=== PATIENT | male | born 1960 | race Caucasian/White ===

== ENCOUNTER 2023-02-27 17:24 | Emergency (ER) | payer MEDICAID, OTHER ==
[~2023-02-27] VITALS: Ht 165.1 cm; Wt 72.6 kg
[2023-02-27 17:48] VITALS: BP 183/97; PULSE 87; RESP 18; TEMP 98.8; O2SAT 98
[2023-02-27 18:35] LABS: BASOPHILS # (AUTO) 0.1 K/uL (0.00-0.22); BASOPHILS % (AUTO) 0.7 % (0.0-2.0); EOSINOPHILS # (AUTO) 0.1 K/uL (0-0.4); EOSINOPHILS % (AUTO) 0.9 % (0.0-4.0); HEMATOCRIT 25.2 % (36-52); HEMOGLOBIN 8.7 g/dL (12.0-18.0); LYMPHOCYTES # (AUTO) 0.6 K/uL (2.0-11.5); LYMPHOCYTES % (AUTO) 5.6 % (20.5-51.1); MEAN CORPUSCULAR HEMOGLOBIN 34 pg (27-31); MEAN CORPUSCULAR HGB CONC 35 g/dL (33-37); MEAN CORPUSCULAR VOLUME 97.5 fL (80-94); MONOCYTES % (AUTO) 9.4 % (1.7-9.3); NEUTROPHILS % (AUTO) 83.4 % (42.2-75.2); PLATELET COUNT (AUTO) 184 K/uL (140-450); RED BLOOD CELL COUNT(AUTO) 2.58 MIL/uL (4.20-6.10); RED CELL DISTRIBUTION WIDTH 13.7 % (11.6-13.7); WHITE BLOOD COUNT (AUTO) 10.8 K/uL (4.8-10.8)
[2023-02-27 18:44] LABS: CALCIUM 8.6 mg/dL (8.5-10.1); CARBON DIOXIDE 24.8 mmol/L (21-32); POTASSIUM 3.8 mmol/L (3.5-5.1)
[2023-02-27 18:57] LABS: CREATININE 6.9 mg/dL (0.6-1.3)
[2023-02-27 20:09] VITALS: BP 171/84; PULSE 86; RESP 18; TEMP 97; O2SAT 98
== END 2023-02-27 20:02 | disposition home or self-care (01) ==
LOC: MED 17:24
DX: N18.6 End stage renal disease (principal); Z99.2 Dependence on renal dialysis; W18.39XA Other fall on same level, initial encounter; Y92.89 Other specified places as the place of occurrence of the external cause; Y93.89 Activity, other specified; Y99.8 Other external cause status
CPT/HCPCS: 36415; 80048; 85025; 93005; 99284

== ENCOUNTER 2023-03-01 17:02 | Inpatient (IN) | payer MEDICAID, OTHER ==
[~2023-03-01] VITALS: Ht 175.3 cm; Wt 63.5 kg
[2023-03-01 17:02] VITALS: BP 95/62; PULSE 172; RESP 18; TEMP 97.4; O2SAT 88
[2023-03-01] MEDS: DILTIAZEM 25 MG/5 ML VIAL IVP ONE ×2 (17:20→18:10)
[2023-03-01] MEDS ORDERED: DILTIAZEM 25 MG/5 ML VIAL IVP ONE (17:21)
[2023-03-01] MEDS: NACL 0.9% 1,000 ML IV ONE (17:25)
[2023-03-01 17:36] LABS: BASOPHILS % (AUTO) 0.8 % (0.0-2.0); HEMATOCRIT 24.9 % (36-52); HEMOGLOBIN 8.7 g/dL (12.0-18.0); LYMPHOCYTES # (AUTO) 0.2 K/uL (2.0-11.5); LYMPHOCYTES % (AUTO) 2.5 % (20.5-51.1); MEAN CORPUSCULAR HEMOGLOBIN 34 pg (27-31); MEAN CORPUSCULAR HGB CONC 35 g/dL (33-37); MEAN CORPUSCULAR VOLUME 96.4 fL (80-94); MONOCYTES # (AUTO) 0.2 K/uL (0.8-1.0); MONOCYTES % (AUTO) 3.7 % (1.7-9.3); NEUTROPHILS # (AUTO) 5.9 K/uL (1.8-7.7); PLATELET COUNT (AUTO) 156 K/uL (140-450); RED BLOOD CELL COUNT(AUTO) 2.59 MIL/uL (4.20-6.10); RED CELL DISTRIBUTION WIDTH 13.6 % (11.6-13.7); WHITE BLOOD COUNT (AUTO) 6.4 K/uL (4.8-10.8)
[2023-03-01 17:46] LABS: ANION GAP 15.5 (8-16); CALCIUM 8.9 mg/dL (8.5-10.1); CARBON DIOXIDE 25.2 mmol/L (21-32); POTASSIUM 3.7 mmol/L (3.5-5.1)
[2023-03-01 17:53] LABS: ALANINE AMINOTRANSFERASE 25 U/L (12-78); ALKALINE PHOSPHATASE 90 U/L (50-136); ASPARTATE AMINOTRANSFERASE 26 U/L (15-37); BILIRUBIN,DIRECT 0.2 mg/dL (0.0-0.3); TOTAL BILIRUBIN 0.5 mg/dL (0.0-1.0); TOTAL PROTEIN, SERUM 7.8 g/dL (6.4-8.2)
[2023-03-01 18:02] LABS: INR 0.98 (0.8-1.2); PARTIAL THROMBOPLASTIN TIME 26.8 secs (22-35.6); PROTHROMBIN TIME 10.3 secs (10.8-13.4)
[2023-03-01] MEDS: DILTIAZEM 125 MG/25 ML VIAL IV ONE (19:59)
[2023-03-01] MEDS: DILTIAZEM 125 MG in DEXTROSE 5% 100 ML IV ONE (19:59)
[2023-03-01] MEDS ORDERED: ONDANSETRON 4 MG/2 ML VIAL IVP PRN (20:35)
[2023-03-01 20:56] LABS: MAGNESIUM 1.6 mg/dL (1.8-2.4); PHOSPHORUS 2.5 mg/dL (2.5-4.9)
[2023-03-02 06:54] LABS: BASOPHILS % (AUTO) 0.7 % (0.0-2.0); HEMATOCRIT 22.5 % (36-52); HEMOGLOBIN 7.8 g/dL (12.0-18.0); LYMPHOCYTES # (AUTO) 0.3 K/uL (2.0-11.5); LYMPHOCYTES % (AUTO) 5.2 % (20.5-51.1); MEAN CORPUSCULAR HEMOGLOBIN 34 pg (27-31); MEAN CORPUSCULAR HGB CONC 34 g/dL (33-37); MEAN CORPUSCULAR VOLUME 97.6 fL (80-94); MONOCYTES # (AUTO) 0.3 K/uL (0.8-1.0); MONOCYTES % (AUTO) 5.4 % (1.7-9.3); NEUTROPHILS # (AUTO) 4.7 K/uL (1.8-7.7); NEUTROPHILS % (AUTO) 88.7 % (42.2-75.2); PLATELET COUNT (AUTO) 144 K/uL (140-450); RED BLOOD CELL COUNT(AUTO) 2.31 MIL/uL (4.20-6.10); RED CELL DISTRIBUTION WIDTH 13.6 % (11.6-13.7); WHITE BLOOD COUNT (AUTO) 5.3 K/uL (4.8-10.8)
[2023-03-02 07:28] LABS: ALBUMIN 2.6 g/dL (3.4-5.0); ANION GAP 15.9 (8-16); CALCIUM 8.2 mg/dL (8.5-10.1); CARBON DIOXIDE 24.7 mmol/L (21-32); POTASSIUM 4.6 mmol/L (3.5-5.1); TOTAL BILIRUBIN 0.4 mg/dL (0.0-1.0); TOTAL PROTEIN, SERUM 6.9 g/dL (6.4-8.2)
[2023-03-02 07:30] LABS: CREATININE 7.9 mg/dL (0.6-1.3)
[2023-03-02] MEDS ORDERED: DILTIAZEM 30 MG TAB ONE ×2 (08:11→09:35)
[2023-03-02] MEDS: AMIODARONE 200 MG TAB PO SCH (08:34)
[2023-03-02] MEDS: DILTIAZEM 120 MG CAPER PO SCH ×2 (09:00→09:58)
[2023-03-02] MEDS: DOCUSATE SODIUM 100 MG GELCAP PO SCH (09:11)
[2023-03-02] MEDS ORDERED: DILTIAZEM 60 MG TAB PO SCH (09:41)
[2023-03-02] MEDS: DILTIAZEM 60 MG TAB PO SCH (09:57)
[2023-03-02] MEDS: PANTOPRAZOLE 40 MG INJ VIAL IVP SCH (11:56)
[2023-03-02] MEDS: APIXABAN 2.5 MG TAB PO SCH (11:56)
[2023-03-02 21:05] VITALS: BP 131/67; PULSE 68; RESP 18; TEMP 98; O2SAT 96
[2023-03-02 21:09] VITALS: PULSE 78
[2023-03-02 21:28] VITALS: O2SAT 95
[2023-03-02] MEDS: MAGNESIUM OXIDE 400 MG TAB PO ONE (22:43)
[2023-03-02 23:55] VITALS: PULSE 64
[2023-03-03] VITALS (12 sets, daily range): BP systolic 130–164; BP diastolic 60–97; PULSE 64–147; RESP 17–20; TEMP 98.1–101.4; O2SAT 94–98
[2023-03-03 07:07] LABS: BASOPHILS % (AUTO) 0.7 % (0.0-2.0); EOSINOPHILS % (AUTO) 0.1 % (0.0-4.0); HEMATOCRIT 21.1 % (36-52); HEMOGLOBIN 7.2 g/dL (12.0-18.0); LYMPHOCYTES # (AUTO) 0.5 K/uL (2.0-11.5); LYMPHOCYTES % (AUTO) 10.4 % (20.5-51.1); MEAN CORPUSCULAR HEMOGLOBIN 34 pg (27-31); MEAN CORPUSCULAR HGB CONC 34 g/dL (33-37); MEAN CORPUSCULAR VOLUME 98.2 fL (80-94); MONOCYTES # (AUTO) 0.3 K/uL (0.8-1.0); MONOCYTES % (AUTO) 7.3 % (1.7-9.3); NEUTROPHILS # (AUTO) 3.8 K/uL (1.8-7.7); NEUTROPHILS % (AUTO) 81.5 % (42.2-75.2); PLATELET COUNT (AUTO) 127 K/uL (140-450); RED BLOOD CELL COUNT(AUTO) 2.14 MIL/uL (4.20-6.10); RED CELL DISTRIBUTION WIDTH 13.5 % (11.6-13.7); WHITE BLOOD COUNT (AUTO) 4.7 K/uL (4.8-10.8)
[2023-03-03 07:22] LABS: ALBUMIN 2.5 g/dL (3.4-5.0); ANION GAP 19.8 (8-16); CALCIUM 7.7 mg/dL (8.5-10.1); CARBON DIOXIDE 21.8 mmol/L (21-32); POTASSIUM 4.6 mmol/L (3.5-5.1); TOTAL BILIRUBIN 0.4 mg/dL (0.0-1.0); TOTAL PROTEIN, SERUM 6.6 g/dL (6.4-8.2)
[2023-03-03 07:27] LABS: CREATININE 9.7 mg/dL (0.6-1.3)
[2023-03-03] MEDS: hydrALAZINE 20 MG/ML VIAL IVP PRN (09:18)
[2023-03-03] MEDS: DILTIAZEM 120 MG CAPER PO SCH (10:45)
[2023-03-03] MEDS: EPOETIN ALFA-EPBX 10,000 UNITS/ML VIAL IV SCH (11:41)
[2023-03-03] MEDS ORDERED: ALBUTEROL 0.083% 2.5 MG/3 ML NEBU INH PRN (17:50)
[2023-03-03] MEDS: WATER STERILE 10 ML VIAL MC ONE (18:50)
[2023-03-03] MEDS: WATER STERILE 10 ML MC ONE (19:35)
[2023-03-03] MEDS: ALTEPLASE 2 MG VIAL MC ONE ×2 (19:35→20:33)
[2023-03-03] MEDS: ACETAMINOPHEN 325 MG TAB PO PRN (19:36)
[2023-03-03] MEDS: METOPROLOL 5 MG/5 ML VIAL ONE (19:42)
[2023-03-03] MEDS: METOPROLOL 5 MG/5 ML VIAL IV ONE (20:33)
[2023-03-04] VITALS (12 sets, daily range): BP systolic 96–130; BP diastolic 55–73; PULSE 68–78; RESP 17–20; TEMP 97–100.2; O2SAT 93–100
[2023-03-04 07:04] LABS: BASOPHILS % (AUTO) 0.1 % (0.0-2.0); HEMATOCRIT 20.7 % (36-52); HEMOGLOBIN 7.3 g/dL (12.0-18.0); LYMPHOCYTES # (AUTO) 0.2 K/uL (2.0-11.5); LYMPHOCYTES % (AUTO) 2.4 % (20.5-51.1); MEAN CORPUSCULAR HEMOGLOBIN 34 pg (27-31); MEAN CORPUSCULAR HGB CONC 35 g/dL (33-37); MEAN CORPUSCULAR VOLUME 96.7 fL (80-94); MONOCYTES # (AUTO) 0.5 K/uL (0.8-1.0); MONOCYTES % (AUTO) 5.2 % (1.7-9.3); NEUTROPHILS # (AUTO) 9.4 K/uL (1.8-7.7); NEUTROPHILS % (AUTO) 92.3 % (42.2-75.2); PLATELET COUNT (AUTO) 93 K/uL (140-450); RED BLOOD CELL COUNT(AUTO) 2.14 MIL/uL (4.20-6.10); RED CELL DISTRIBUTION WIDTH 13.4 % (11.6-13.7); WHITE BLOOD COUNT (AUTO) 10.2 K/uL (4.8-10.8)
[2023-03-04 07:24] LABS: ALBUMIN 2.4 g/dL (3.4-5.0); ANION GAP 17.9 (8-16); CALCIUM 8.4 mg/dL (8.5-10.1); CARBON DIOXIDE 24.2 mmol/L (21-32); POTASSIUM 4.1 mmol/L (3.5-5.1); TOTAL BILIRUBIN 0.5 mg/dL (0.0-1.0); TOTAL PROTEIN, SERUM 6.6 g/dL (6.4-8.2)
[2023-03-04] MEDS: PIPERACILLIN/TAZOBACTAM 2.25 GM in DEXTROSE 5% 50 ML IV SCH (12:26)
[2023-03-04 13:43] LABS: AMPHETAMINE, URINE NEGATIVE ng/ml (NEG <=1000); BARBITURATE, URINE NEGATIVE ng/ml (NEG <=200); BENZODIAZEPINE, URINE NEGATIVE ng/mL (NEG <=200); CANNABINOID, URINE NEGATIVE ng/mL (NEG <=50); COCAINE, URINE NEGATIVE ng/mL (NEG <=300); OPIATE, URINE NEGATIVE ng/mL (NEG <=2000); PHENCYCLIDINE SCREEN,URINE NEGATIVE ng/mL (NEG <=25)
[2023-03-04] MEDS: LORazepam 1 MG TAB PO PRN (17:22)
[2023-03-04] MEDS: DILTIAZEM 120 MG CAPER PO SCH (20:08)
[2023-03-05] VITALS (12 sets, daily range): BP systolic 99–158; BP diastolic 60–84; PULSE 65–91; RESP 18–20; TEMP 96.7–98.9; O2SAT 93–96
[2023-03-05 06:13] LABS: BASOPHILS % (AUTO) 0.3 % (0.0-2.0); EOSINOPHILS % (AUTO) 0.5 % (0.0-4.0); HEMATOCRIT 20.4 % (36-52); HEMOGLOBIN 7.1 g/dL (12.0-18.0); LYMPHOCYTES # (AUTO) 0.4 K/uL (2.0-11.5); MEAN CORPUSCULAR HEMOGLOBIN 34 pg (27-31); MEAN CORPUSCULAR HGB CONC 35 g/dL (33-37); MEAN CORPUSCULAR VOLUME 96.8 fL (80-94); MONOCYTES # (AUTO) 0.5 K/uL (0.8-1.0); MONOCYTES % (AUTO) 8.9 % (1.7-9.3); NEUTROPHILS % (AUTO) 83.3 % (42.2-75.2); PLATELET COUNT (AUTO) 81 K/uL (140-450); RED BLOOD CELL COUNT(AUTO) 2.11 MIL/uL (4.20-6.10); RED CELL DISTRIBUTION WIDTH 13.5 % (11.6-13.7)
[2023-03-05 06:16] LABS: ALBUMIN 2.4 g/dL (3.4-5.0); CALCIUM 7.8 mg/dL (8.5-10.1); CARBON DIOXIDE 22.2 mmol/L (21-32); POTASSIUM 4.2 mmol/L (3.5-5.1); TOTAL BILIRUBIN 0.5 mg/dL (0.0-1.0); TOTAL PROTEIN, SERUM 6.4 g/dL (6.4-8.2)
[2023-03-05 06:33] LABS: CREATININE 9.8 mg/dL (0.6-1.3)
[2023-03-05 16:51] LABS: FLU A ANTIGEN negative (NEGATIVE); FLU B ANTIGEN NEGATIVE (NEGATIVE)
[2023-03-05] MEDS: ALBUTEROL 0.083% 2.5 MG/3 ML NEBU INH ONE (19:28)
[2023-03-06] VITALS (7 sets, daily range): BP systolic 99–153; BP diastolic 58–99; PULSE 65–96; RESP 16–20; TEMP 97.3–100.1; O2SAT 94–96
[2023-03-06 07:08] LABS: BASOPHILS % (AUTO) 0.5 % (0.0-2.0); EOSINOPHILS % (AUTO) 0.5 % (0.0-4.0); LYMPHOCYTES # (AUTO) 0.6 K/uL (2.0-11.5); LYMPHOCYTES % (AUTO) 10.7 % (20.5-51.1); MEAN CORPUSCULAR HEMOGLOBIN 34 pg (27-31); MEAN CORPUSCULAR HGB CONC 35 g/dL (33-37); MONOCYTES # (AUTO) 0.5 K/uL (0.8-1.0); MONOCYTES % (AUTO) 10.1 % (1.7-9.3); NEUTROPHILS # (AUTO) 4.1 K/uL (1.8-7.7); NEUTROPHILS % (AUTO) 78.2 % (42.2-75.2); PLATELET COUNT (AUTO) 73 K/uL (140-450); RED BLOOD CELL COUNT(AUTO) 2.04 MIL/uL (4.20-6.10); RED CELL DISTRIBUTION WIDTH 13.4 % (11.6-13.7); WHITE BLOOD COUNT (AUTO) 5.2 K/uL (4.8-10.8)
[2023-03-06 07:10] LABS: ALBUMIN 2.3 g/dL (3.4-5.0); ANION GAP 22.9 (8-16); CALCIUM 7.7 mg/dL (8.5-10.1); CARBON DIOXIDE 20.8 mmol/L (21-32); POTASSIUM 4.7 mmol/L (3.5-5.1); TOTAL BILIRUBIN 0.5 mg/dL (0.0-1.0); TOTAL PROTEIN, SERUM 6.4 g/dL (6.4-8.2)
[2023-03-06 07:58] LABS: CREATININE 12.2 mg/dL (0.6-1.3); HEMATOCRIT 19.8 % (36-52); HEMOGLOBIN 6.8 g/dL (12.0-18.0)
[2023-03-06 19:23] LABS: BASOPHILS % (AUTO) 0.4 % (0.0-2.0); EOSINOPHILS % (AUTO) 0.5 % (0.0-4.0); HEMOGLOBIN 8.5 g/dL (12.0-18.0); LYMPHOCYTES # (AUTO) 0.2 K/uL (2.0-11.5); LYMPHOCYTES % (AUTO) 1.5 % (20.5-51.1); MEAN CORPUSCULAR HEMOGLOBIN 34 pg (27-31); MEAN CORPUSCULAR HGB CONC 36 g/dL (33-37); MEAN CORPUSCULAR VOLUME 94.9 fL (80-94); MONOCYTES # (AUTO) 0.4 K/uL (0.8-1.0); MONOCYTES % (AUTO) 4.4 % (1.7-9.3); NEUTROPHILS # (AUTO) 9.1 K/uL (1.8-7.7); NEUTROPHILS % (AUTO) 93.2 % (42.2-75.2); PLATELET COUNT (AUTO) 59 K/uL (140-450); RED BLOOD CELL COUNT(AUTO) 2.53 MIL/uL (4.20-6.10); RED CELL DISTRIBUTION WIDTH 14.2 % (11.6-13.7); WHITE BLOOD COUNT (AUTO) 9.7 K/uL (4.8-10.8)
[2023-03-06] MEDS ORDERED: MEROPENEM 500 MG in NACL 0.9% 50 ML IV SCH (21:00)
[2023-03-06] MEDS: MEROPENEM 500 MG VIAL IV ONE (21:52)
[2023-03-06] MEDS: MEROPENEM 500 MG in NACL 0.9% 50 ML IV SCH (21:53)
[2023-03-07 07:16] LABS: EOSINOPHILS % (AUTO) 0.1 % (0.0-4.0); HEMATOCRIT 24.3 % (36-52); HEMOGLOBIN 8.4 g/dL (12.0-18.0); LYMPHOCYTES # (AUTO) 0.6 K/uL (2.0-11.5); LYMPHOCYTES % (AUTO) 3.6 % (20.5-51.1); MEAN CORPUSCULAR HEMOGLOBIN 33 pg (27-31); MEAN CORPUSCULAR HGB CONC 35 g/dL (33-37); MEAN CORPUSCULAR VOLUME 96.1 fL (80-94); MONOCYTES # (AUTO) 1.1 K/uL (0.8-1.0); MONOCYTES % (AUTO) 6.1 % (1.7-9.3); NEUTROPHILS # (AUTO) 15.8 K/uL (1.8-7.7); NEUTROPHILS % (AUTO) 90.2 % (42.2-75.2); PLATELET COUNT (AUTO) 52 K/uL (140-450); RED BLOOD CELL COUNT(AUTO) 2.53 MIL/uL (4.20-6.10); RED CELL DISTRIBUTION WIDTH 14.4 % (11.6-13.7); WHITE BLOOD COUNT (AUTO) 17.6 K/uL (4.8-10.8)
[2023-03-07 07:21] LABS: ALBUMIN 2.4 g/dL (3.4-5.0); ANION GAP 21.7 (8-16); CALCIUM 7.8 mg/dL (8.5-10.1); CARBON DIOXIDE 21.8 mmol/L (21-32); POTASSIUM 4.5 mmol/L (3.5-5.1); TOTAL BILIRUBIN 0.7 mg/dL (0.0-1.0)
[2023-03-07 07:40] LABS: CREATININE 10.6 mg/dL (0.6-1.3)
[2023-03-07 08:00] VITALS: BP 138/90; PULSE 67; RESP 18; TEMP 98; O2SAT 96
[2023-03-07 08:13] VITALS: PULSE 78; RESP 20; O2SAT 99
[2023-03-07 08:23] VITALS: PULSE 83; RESP 20; O2SAT 96
[2023-03-07 16:00] VITALS: BP 127/73; PULSE 68; RESP 17; TEMP 98.2; O2SAT 96
[2023-03-07 20:00] VITALS: PULSE 110; RESP 20; TEMP 98; O2SAT 94
[2023-03-07] MEDS: MEROPENEM 500 MG in NACL 0.9% 50 ML IV SCH (20:08)
[2023-03-07] MEDS: ZOLPIDEM 5 MG TAB PO PRN (23:45)
[2023-03-08] VITALS: BP 91/58; PULSE 72; RESP 17; TEMP 97.8; O2SAT 96
[2023-03-08 04:00] VITALS: BP 94/73; PULSE 66; RESP 20; TEMP 97.6; O2SAT 94
[2023-03-08 07:30] LABS: ANION GAP 14.3 (8-16); CALCIUM 7.7 mg/dL (8.5-10.1); CARBON DIOXIDE 30.2 mmol/L (21-32); POTASSIUM 3.5 mmol/L (3.5-5.1)
[2023-03-08 07:35] LABS: CREATININE 6.7 mg/dL (0.6-1.3)
[2023-03-08 08:00] VITALS: BP 93/69; PULSE 64; PULSE 65; RESP 18; RESP 20; TEMP 97.4; O2SAT 93; O2SAT 95
[2023-03-08 11:55] LABS: BASOPHILS % (AUTO) 0.4 % (0.0-2.0); EOSINOPHILS # (AUTO) 0.1 K/uL (0-0.4); EOSINOPHILS % (AUTO) 0.8 % (0.0-4.0); HEMATOCRIT 24.7 % (36-52); HEMOGLOBIN 8.6 g/dL (12.0-18.0); LYMPHOCYTES # (AUTO) 0.9 K/uL (2.0-11.5); LYMPHOCYTES % (AUTO) 8.7 % (20.5-51.1); MEAN CORPUSCULAR HEMOGLOBIN 34 pg (27-31); MEAN CORPUSCULAR HGB CONC 35 g/dL (33-37); MEAN CORPUSCULAR VOLUME 96.3 fL (80-94); MONOCYTES # (AUTO) 1.2 K/uL (0.8-1.0); MONOCYTES % (AUTO) 11.7 % (1.7-9.3); NEUTROPHILS % (AUTO) 78.4 % (42.2-75.2); PLATELET COUNT (AUTO) 51 K/uL (140-450); RED BLOOD CELL COUNT(AUTO) 2.57 MIL/uL (4.20-6.10); RED CELL DISTRIBUTION WIDTH 14.2 % (11.6-13.7); WHITE BLOOD COUNT (AUTO) 10.3 K/uL (4.8-10.8)
[2023-03-08 12:00] VITALS: BP 121/92; PULSE 70; RESP 18; TEMP 98.4; O2SAT 99
[2023-03-08 12:10] LABS: ALBUMIN 2.2 g/dL (3.4-5.0); CALCIUM 7.6 mg/dL (8.5-10.1); CARBON DIOXIDE 27.6 mmol/L (21-32); POTASSIUM 3.6 mmol/L (3.5-5.1); TOTAL BILIRUBIN 0.5 mg/dL (0.0-1.0); TOTAL PROTEIN, SERUM 6.4 g/dL (6.4-8.2)
[2023-03-08 12:16] LABS: CREATININE 6.7 mg/dL (0.6-1.3)
[2023-03-08 20:00] VITALS: BP 99/62; PULSE 106; PULSE 75; RESP 16; RESP 18; TEMP 98.1; TEMP 98.7; O2SAT 92
[2023-03-08 20:26] VITALS: O2SAT 97
[2023-03-09 07:15] LABS: BASOPHILS # (AUTO) 0.1 K/uL (0.00-0.22); BASOPHILS % (AUTO) 0.5 % (0.0-2.0); EOSINOPHILS # (AUTO) 0.1 K/uL (0-0.4); EOSINOPHILS % (AUTO) 1.4 % (0.0-4.0); HEMATOCRIT 26.1 % (36-52); LYMPHOCYTES % (AUTO) 10.6 % (20.5-51.1); MEAN CORPUSCULAR HEMOGLOBIN 33 pg (27-31); MEAN CORPUSCULAR HGB CONC 35 g/dL (33-37); MEAN CORPUSCULAR VOLUME 96.3 fL (80-94); MONOCYTES # (AUTO) 1.6 K/uL (0.8-1.0); MONOCYTES % (AUTO) 16.6 % (1.7-9.3); NEUTROPHILS # (AUTO) 6.8 K/uL (1.8-7.7); NEUTROPHILS % (AUTO) 70.9 % (42.2-75.2); PLATELET COUNT (AUTO) 67 K/uL (140-450); RED BLOOD CELL COUNT(AUTO) 2.71 MIL/uL (4.20-6.10); RED CELL DISTRIBUTION WIDTH 14.3 % (11.6-13.7); WHITE BLOOD COUNT (AUTO) 9.6 K/uL (4.8-10.8)
[2023-03-09 07:31] LABS: ALBUMIN 2.4 g/dL (3.4-5.0); ANION GAP 13.4 (8-16); CALCIUM 7.9 mg/dL (8.5-10.1); CARBON DIOXIDE 29.9 mmol/L (21-32); POTASSIUM 4.3 mmol/L (3.5-5.1); TOTAL BILIRUBIN 0.5 mg/dL (0.0-1.0); TOTAL PROTEIN, SERUM 6.8 g/dL (6.4-8.2)
[2023-03-09 07:34] LABS: CREATININE 6.3 mg/dL (0.6-1.3)
[2023-03-09 08:32] VITALS: PULSE 98
[2023-03-09 08:33] VITALS: TEMP 97.8
[2023-03-09 08:35] VITALS: PULSE 98; RESP 20
[2023-03-09 16:00] VITALS: BP 173/66; PULSE 63; RESP 18; TEMP 97.4; O2SAT 97
[2023-03-09 19:35] VITALS: O2SAT 95
[2023-03-09 20:00] VITALS: BP 122/70; PULSE 63; PULSE 73; RESP 16; TEMP 98.8; O2SAT 95; O2SAT 97
[2023-03-09] MEDS ORDERED: MELATONIN 3 MG TAB PO PRN (23:35)
[2023-03-10] VITALS (7 sets, daily range): BP systolic 112–168; BP diastolic 67–92; PULSE 65–103; RESP 16–20; TEMP 97.9–100.5; O2SAT 93–99
[2023-03-10 07:48] LABS: BASOPHILS % (AUTO) 0.5 % (0.0-2.0); EOSINOPHILS # (AUTO) 0.2 K/uL (0-0.4); EOSINOPHILS % (AUTO) 2.1 % (0.0-4.0); HEMATOCRIT 23.9 % (36-52); LYMPHOCYTES # (AUTO) 0.8 K/uL (2.0-11.5); LYMPHOCYTES % (AUTO) 10.8 % (20.5-51.1); MEAN CORPUSCULAR HEMOGLOBIN 33 pg (27-31); MEAN CORPUSCULAR HGB CONC 34 g/dL (33-37); MONOCYTES # (AUTO) 1.2 K/uL (0.8-1.0); NEUTROPHILS # (AUTO) 5.5 K/uL (1.8-7.7); NEUTROPHILS % (AUTO) 71.6 % (42.2-75.2); PLATELET COUNT (AUTO) 105 K/uL (140-450); RED BLOOD CELL COUNT(AUTO) 2.44 MIL/uL (4.20-6.10); RED CELL DISTRIBUTION WIDTH 14.2 % (11.6-13.7); WHITE BLOOD COUNT (AUTO) 7.7 K/uL (4.8-10.8)
[2023-03-10 08:31] LABS: ALBUMIN 2.4 g/dL (3.4-5.0); ANION GAP 18.3 (8-16); CALCIUM 7.5 mg/dL (8.5-10.1); CARBON DIOXIDE 26.5 mmol/L (21-32); POTASSIUM 4.8 mmol/L (3.5-5.1); TOTAL BILIRUBIN 0.5 mg/dL (0.0-1.0); TOTAL PROTEIN, SERUM 6.6 g/dL (6.4-8.2)
[2023-03-10 08:33] LABS: CREATININE 8.5 mg/dL (0.6-1.3)
[2023-03-10] MEDS: LIDOCAINE MPF 1% 10 MG/ML VIAL INJ ONE (20:35)
[2023-03-10] MEDS: MORPHINE SULFATE 4 MG/ML SYR IVP ONE (20:35)
[2023-03-11] VITALS (8 sets, daily range): BP systolic 96–141; BP diastolic 64–80; PULSE 62–72; RESP 18; TEMP 96.8–98.9; O2SAT 93–99
[2023-03-11 07:26] LABS: BASOPHILS % (AUTO) 0.5 % (0.0-2.0); EOSINOPHILS # (AUTO) 0.2 K/uL (0-0.4); EOSINOPHILS % (AUTO) 2.3 % (0.0-4.0); HEMATOCRIT 23.3 % (36-52); LYMPHOCYTES # (AUTO) 0.7 K/uL (2.0-11.5); LYMPHOCYTES % (AUTO) 8.9 % (20.5-51.1); MEAN CORPUSCULAR HEMOGLOBIN 33 pg (27-31); MEAN CORPUSCULAR HGB CONC 34 g/dL (33-37); MEAN CORPUSCULAR VOLUME 97.5 fL (80-94); MONOCYTES # (AUTO) 1.1 K/uL (0.8-1.0); MONOCYTES % (AUTO) 13.5 % (1.7-9.3); NEUTROPHILS % (AUTO) 74.8 % (42.2-75.2); PLATELET COUNT (AUTO) 139 K/uL (140-450); RED CELL DISTRIBUTION WIDTH 14.2 % (11.6-13.7)
[2023-03-11 08:03] LABS: ALBUMIN 2.5 g/dL (3.4-5.0); ANION GAP 15.5 (8-16); CALCIUM 7.9 mg/dL (8.5-10.1); CARBON DIOXIDE 26.7 mmol/L (21-32); POTASSIUM 4.2 mmol/L (3.5-5.1); TOTAL BILIRUBIN 0.5 mg/dL (0.0-1.0); TOTAL PROTEIN, SERUM 6.1 g/dL (6.4-8.2)
[2023-03-11 08:05] LABS: CREATININE 6.2 mg/dL (0.6-1.3)
[2023-03-12] VITALS (8 sets, daily range): BP systolic 136–145; BP diastolic 73–80; PULSE 67–72; RESP 18–19; TEMP 97.2–98.4; O2SAT 93–97
[2023-03-12] MEDS: MORPHINE SULFATE 2 MG/ML SYR ONE (21:17)
[2023-03-12] MEDS: LIDOCAINE MPF 1% 5 ML ONE (21:32)
[2023-03-13] VITALS: BP 141/83; PULSE 68; RESP 18; TEMP 98.3; O2SAT 96
[2023-03-13 07:36] VITALS: PULSE 78; RESP 20; O2SAT 99
[2023-03-13 07:37] VITALS: PULSE 69
[2023-03-13 07:38] VITALS: TEMP 97.2
[2023-03-13 08:00] VITALS: BP 140/80; PULSE 73; RESP 20; TEMP 98.4; O2SAT 93
[2023-03-13 20:00] VITALS: BP 151/97; PULSE 84; PULSE 87; RESP 18; TEMP 98; O2SAT 93
[2023-03-14] MEDS: fentaNYL citrate 0.05 MG/ML VIAL ONE ×2 (07:42→08:51)
[2023-03-14] MEDS: BUPIVACAINE-MPF 0.5% 10 ML VIAL INJ ONE (07:43)
[2023-03-14] MEDS: ceFAZolin 2,000 MG VIAL ONE (07:43)
[2023-03-14] MEDS: LIDOCAINE/EPI 1% 1:100000 20 ML VIAL INJ ONE (07:43)
[2023-03-14] MEDS: MIDAZOLAM 2 MG/2 ML VIAL ONE (07:43)
[2023-03-14 08:00] VITALS: PULSE 74; TEMP 97.6
[2023-03-14] MEDS ORDERED: MEPERIDINE 25 MG/ML SYR IVP PRN (08:50)
[2023-03-14] MEDS: ONDANSETRON 4 MG/2 ML VIAL ONE (08:50)
[2023-03-14] MEDS ORDERED: diphenhydrAMINE 50 MG/ML VIAL IVP PRN (08:50)
[2023-03-14] MEDS ORDERED: ONDANSETRON 4 MG/2 ML VIAL IVP PRN (08:50)
[2023-03-14] MEDS ORDERED: HYDROmorphone 1 MG/ML AMP IVP PRN (08:50)
[2023-03-14] MEDS: DEXAMETHASONE 4 MG/ML VIAL ONE (08:51)
[2023-03-14 09:30] VITALS: BP 155/86; PULSE 74; RESP 18; TEMP 97.6; O2SAT 91
[2023-03-14] MEDS: NACL 0.9% 1,000 ML IV SCH (10:09)
[2023-03-14] MEDS ORDERED: ROC1PM IV (11:17)
[2023-03-14] MEDS ORDERED: LORA-476 PO (11:17)
[2023-03-14] MEDS ORDERED: DILT120C95 PO (11:17)
[2023-03-14] MEDS ORDERED: [UNRECOGNIZED DRUG - CODE] IV (11:17)
[2023-03-14 15:08] VITALS: PULSE 74; RESP 21; O2SAT 93
== END 2023-03-14 16:45 | DRG 721 ==
LOC: MED 17:02 → MTU 21:48
PROVIDERS: ADMIT Student in an Organized Health Care Education/Training Program; ATTEND Student in an Organized Health Care Education/Training Program
PROC: 30233N1 Transfusion of Nonautologous Red Blood Cells into Peripheral Vein, Percutaneous Approach (ICD-10-PCS; 2023-03-06)
PROC: 5A1D70Z Performance of Urinary Filtration, Intermittent, Less than 6 Hours Per Day (ICD-10-PCS; 2023-03-06)
PROC: 5A1D70Z Performance of Urinary Filtration, Intermittent, Less than 6 Hours Per Day (ICD-10-PCS; 2023-03-07)
PROC: 5A1D70Z Performance of Urinary Filtration, Intermittent, Less than 6 Hours Per Day (ICD-10-PCS; 2023-03-08)
PROC: 5A1D70Z Performance of Urinary Filtration, Intermittent, Less than 6 Hours Per Day (ICD-10-PCS; 2023-03-10)
PROC: 06PY33Z Removal of Infusion Device from Lower Vein, Percutaneous Approach (ICD-10-PCS; 2023-03-12)
PROC: 5A1D70Z Performance of Urinary Filtration, Intermittent, Less than 6 Hours Per Day (ICD-10-PCS; 2023-03-13)
PROC: 05HM33Z Insertion of Infusion Device into Right Internal Jugular Vein, Percutaneous Approach (ICD-10-PCS; 2023-03-14)
PROC: B543ZZA Ultrasonography of Right Jugular Veins, Guidance (ICD-10-PCS; 2023-03-14)
PROC: 5A1D70Z Performance of Urinary Filtration, Intermittent, Less than 6 Hours Per Day (ICD-10-PCS; 2023-03-14)
PROC: 0JH63XZ Insertion of Tunneled Vascular Access Device into Chest Subcutaneous Tissue and Fascia, Percutaneous Approach (ICD-10-PCS; principal; 2023-03-14 07:30)
DX: T80.211A Bloodstream infection due to central venous catheter, initial encounter (principal); A41.9 Sepsis, unspecified organism; I12.0 Hypertensive chronic kidney disease with stage 5 chronic kidney disease or end stage renal disease; E44.0 Moderate protein-calorie malnutrition; I48.20 Chronic atrial fibrillation, unspecified; D63.1 Anemia in chronic kidney disease; N18.6 End stage renal disease; E87.70 Fluid overload, unspecified; Z20.822 Contact with and (suspected) exposure to COVID-19; R91.1 Solitary pulmonary nodule; B96.4 Proteus (mirabilis) (morganii) as the cause of diseases classified elsewhere; Y84.8 Other medical procedures as the cause of abnormal reaction of the patient, or of later complication, without mention of misadventure at the time of the procedure; Z99.2 Dependence on renal dialysis; Z79.899 Other long term (current) drug therapy; Z79.01 Long term (current) use of anticoagulants; Z87.891 Personal history of nicotine dependence; Z68.20 Body mass index [BMI] 20.0-20.9, adult
CPT/HCPCS: 36415; 71045; 71250; 80048; 80053; 80076; 80305; 82728; 83036; 83540; 83735; 83880; 84100; 84484; 85025; 85379; 85610; 85730; 86886; 86900; 86901; 86920; 87040; 87081; 93005; 93970; 96361; 96374; 97116; 97163-GP; 97530; 99291; C1713; C1894; C9113; J0360; J0696; J1100; J1644; J2001; J2185; J2250; J2270; J2405; J2543; J2997; J3010; J3490; J7030; J7060; J7613; P9016; Q0092; Q5106

== ENCOUNTER 2023-05-24 15:13 | Inpatient (IN) | payer OTHER, MEDICAID ==
[~2023-05-24] VITALS: Ht 170.2 cm; Wt 70.3 kg
[~2023-05-24 15:13] MED LIST: DILT120C95 PO; LORA-476 PO; ROC1PM IV; [UNRECOGNIZED DRUG - CODE] IV
[2023-05-24 15:26] VITALS: BP 187/138; PULSE 155; RESP 17; TEMP 97.6; O2SAT 97
[2023-05-24] MEDS: DILTIAZEM 25 MG/5 ML VIAL IVP ONE (15:41)
[2023-05-24 15:46] LABS: BASOPHILS # (AUTO) 0.1 K/uL (0.00-0.22); BASOPHILS % (AUTO) 1.2 % (0.0-2.0); EOSINOPHILS # (AUTO) 0.1 K/uL (0-0.4); EOSINOPHILS % (AUTO) 0.8 % (0.0-4.0); HEMATOCRIT 26.8 % (36-52); HEMOGLOBIN 9.3 g/dL (12.0-18.0); LYMPHOCYTES # (AUTO) 0.6 K/uL (2.0-11.5); LYMPHOCYTES % (AUTO) 5.9 % (20.5-51.1); MEAN CORPUSCULAR HEMOGLOBIN 32 pg (27-31); MEAN CORPUSCULAR HGB CONC 35 g/dL (33-37); MEAN CORPUSCULAR VOLUME 91.7 fL (80-94); MONOCYTES % (AUTO) 9.5 % (1.7-9.3); NEUTROPHILS # (AUTO) 8.9 K/uL (1.8-7.7); NEUTROPHILS % (AUTO) 82.6 % (42.2-75.2); PLATELET COUNT (AUTO) 193 K/uL (140-450); RED BLOOD CELL COUNT(AUTO) 2.92 MIL/uL (4.20-6.10); RED CELL DISTRIBUTION WIDTH 15.5 % (11.6-13.7); WHITE BLOOD COUNT (AUTO) 10.8 K/uL (4.8-10.8)
[2023-05-24 16:13] LABS: ANION GAP 16.6 (8-16); CALCIUM 9.1 mg/dL (8.5-10.1); CARBON DIOXIDE 26.1 mmol/L (21-32); POTASSIUM 3.7 mmol/L (3.5-5.1)
[2023-05-24 16:15] LABS: CREATININE 6.3 mg/dL (0.6-1.3)
[2023-05-24 16:16] LABS: INR 0.93 (0.8-1.2); PARTIAL THROMBOPLASTIN TIME 27.2 secs (22-35.6); PROTHROMBIN TIME 9.8 secs (10.8-13.4)
[2023-05-24] MEDS: DILTIAZEM 30 MG TAB PO ONE (16:24)
[2023-05-24 16:29] LABS: MAGNESIUM 2.1 mg/dL (1.8-2.4); PHOSPHORUS 4.3 mg/dL (2.5-4.9); THYROID STIMULATING HORMONE 0.92 uIU/mL (0.34-3.74)
[2023-05-24] MEDS: CLONIDINE HYDROCHLORIDE 0.1 MG TAB PO ONE ×2 (16:58→17:44)
[2023-05-24] MEDS: ASPIRIN 81 MG TAB.CHEW PO ONE (16:58)
[2023-05-24] MEDS ORDERED: HYDR-5856 PO (18:09)
[2023-05-24] MEDS ORDERED: DONE10TA37 PO (18:09)
[2023-05-24] MEDS ORDERED: KAY15 PO (18:09)
[2023-05-24] MEDS ORDERED: CARV12.52 PO (18:09)
[2023-05-24] MEDS ORDERED: ALBU117P INH (18:09)
[2023-05-24] MEDS ORDERED: LACT10SO8 PO (18:09)
[2023-05-24] MEDS ORDERED: MIRT-33 PO (18:09)
[2023-05-24] MEDS ORDERED: QUET25TA46 PO (18:09)
[2023-05-24] MEDS ORDERED: SEVE800T25 PO (18:09)
[2023-05-24] MEDS ORDERED: [UNRECOGNIZED DRUG - CODE] PO (18:09)
[2023-05-24] MEDS ORDERED: HYDROcodone/APAP 5/325 MG 1 TAB TAB PO PRN (18:50)
[2023-05-24] MEDS ORDERED: MORPHINE SULFATE 2 MG/ML SYR IVP PRN (18:50)
[2023-05-24] MEDS ORDERED: ONDANSETRON 4 MG/2 ML VIAL IVP PRN (18:50)
[2023-05-24] MEDS ORDERED: ACETAMINOPHEN 325 MG TAB PO PRN (18:50)
[2023-05-24] MEDS ORDERED: ALBUTEROL 0.083% 2.5 MG/3 ML NEBU INH PRN (18:50)
[2023-05-24] MEDS ORDERED: DEXTROSE 50% 50 ML SYR IVP PRN (19:00)
[2023-05-24] MEDS ORDERED: INSULIN LISPRO SLIDING SCALE 100 UNITS/ML VIAL SUBQ PRN (19:00)
[2023-05-24] MEDS ORDERED: LORazepam 1 MG TAB PO PRN (19:05)
[2023-05-24 20:42] VITALS: PULSE 65; RESP 21; O2SAT 96
[2023-05-24 20:46] VITALS: PULSE 82
[2023-05-24] MEDS ORDERED: DILTIAZEM HCL PO SCH (21:00)
[2023-05-24] MEDS: BLOOD GLUCOSE MONITORING 1 DEV DEV FS SCH (23:00)
[2023-05-24] MEDS: DILTIAZEM 120 MG CAPER PO SCH (23:29)
[2023-05-24] MEDS: carvediloL 12.5 MG TAB PO SCH (23:31)
[2023-05-24] MEDS: QUEtiapine FUMARATE 25 MG TAB PO SCH (23:32)
[2023-05-25] VITALS (11 sets, daily range): BP systolic 162–231; BP diastolic 93–115; PULSE 63–94; RESP 16–21; TEMP 97.4–99; O2SAT 96–98
[2023-05-25] MEDS: hydrALAZINE 20 MG/ML VIAL IVP PRN ×2 (05:49→05:50)
[2023-05-25] MEDS ORDERED: SODIUM POLYSTYRENE 15 GM/60 ML UDBTL PO SCH ×2 (09:00)
[2023-05-25] MEDS: DONEPEZIL 10 MG TAB PO SCH (09:22)
[2023-05-25] MEDS: hydrALAZINE 25 MG TAB PO SCH (09:23)
[2023-05-25] MEDS: carvediloL 6.25 MG TAB PO SCH (09:24)
[2023-05-26] VITALS (7 sets, daily range): BP systolic 138–169; BP diastolic 71–96; PULSE 63–98; RESP 17–18; TEMP 96.8–99; O2SAT 95–99
[2023-05-26 07:27] LABS: BASOPHILS # (AUTO) 0.1 K/uL (0.00-0.22); BASOPHILS % (AUTO) 1.2 % (0.0-2.0); EOSINOPHILS # (AUTO) 0.1 K/uL (0-0.4); EOSINOPHILS % (AUTO) 2.6 % (0.0-4.0); HEMATOCRIT 26.1 % (36-52); LYMPHOCYTES # (AUTO) 0.6 K/uL (2.0-11.5); LYMPHOCYTES % (AUTO) 11.3 % (20.5-51.1); MEAN CORPUSCULAR HEMOGLOBIN 32 pg (27-31); MEAN CORPUSCULAR HGB CONC 35 g/dL (33-37); MEAN CORPUSCULAR VOLUME 91.6 fL (80-94); MONOCYTES # (AUTO) 0.6 K/uL (0.8-1.0); MONOCYTES % (AUTO) 11.7 % (1.7-9.3); NEUTROPHILS # (AUTO) 3.8 K/uL (1.8-7.7); NEUTROPHILS % (AUTO) 73.2 % (42.2-75.2); PLATELET COUNT (AUTO) 179 K/uL (140-450); RED BLOOD CELL COUNT(AUTO) 2.85 MIL/uL (4.20-6.10); RED CELL DISTRIBUTION WIDTH 15.7 % (11.6-13.7); WHITE BLOOD COUNT (AUTO) 5.2 K/uL (4.8-10.8)
[2023-05-26 07:38] LABS: ANION GAP 17.1 (8-16); CALCIUM 8.7 mg/dL (8.5-10.1); CARBON DIOXIDE 25.1 mmol/L (21-32); POTASSIUM 4.2 mmol/L (3.5-5.1)
[2023-05-26] MEDS: EPOETIN ALFA-EPBX 10,000 UNITS/ML VIAL IV SCH (08:39)
[2023-05-26] MEDS ORDERED: EPOETIN ALFA-EPBX 10,000 UNITS/ML VIAL SUBQ SCH (09:00)
== END 2023-05-26 17:20 | disposition home or self-care (01) | DRG 280 ==
LOC: MED 15:13 → MTU 19:54
PROVIDERS: ADMIT Internal Medicine; ATTEND Internal Medicine
PROC: 5A1D70Z Performance of Urinary Filtration, Intermittent, Less than 6 Hours Per Day (ICD-10-PCS; principal; 2023-05-25)
PROC: 5A1D70Z Performance of Urinary Filtration, Intermittent, Less than 6 Hours Per Day (ICD-10-PCS; 2023-05-26)
DX: I13.2 Hypertensive heart and chronic kidney disease with heart failure and with stage 5 chronic kidney disease, or end stage renal disease (principal); G93.41 Metabolic encephalopathy; I21.A1 Myocardial infarction type 2; N18.6 End stage renal disease; I50.33 Acute on chronic diastolic (congestive) heart failure; R65.10 Systemic inflammatory response syndrome (SIRS) of non-infectious origin without acute organ dysfunction; E87.1 Hypo-osmolality and hyponatremia; D63.8 Anemia in other chronic diseases classified elsewhere; E11.22 Type 2 diabetes mellitus with diabetic chronic kidney disease; I48.0 Paroxysmal atrial fibrillation; J44.9 Chronic obstructive pulmonary disease, unspecified; Z99.2 Dependence on renal dialysis; Z79.899 Other long term (current) drug therapy; Z79.01 Long term (current) use of anticoagulants
CPT/HCPCS: 36415; 71045; 80048; 82948; 83735; 83880; 84100; 84443; 84484; 85025; 85610; 85730; 87081; 90935; 93005; 96374; 99291; J0360; J1644; J1815; J3490

== ENCOUNTER 2023-08-16 13:52 | Inpatient (IN) | payer OTHER, MEDICAID ==
[~2023-08-16] VITALS: Ht 180.3 cm; Wt 63.5 kg
[~2023-08-16 13:52] MED LIST changes: +ALBU117P INH; +CARV12.52 PO; +DONE10TA37 PO; +HYDR-5856 PO; +KAY15 PO; +LACT10SO8 PO; +MIRT-33 PO; +QUET25TA46 PO; +SEVE800T25 PO; +[UNRECOGNIZED DRUG - CODE] PO
[2023-08-16 13:55] VITALS: BP 184/94; PULSE 82; RESP 16; TEMP 98.1; O2SAT 98
[2023-08-16] MEDS ORDERED: ZIPRASIDONE MESYLATE 20 MG/ML VIAL IM ONE ×2 (14:02→14:03)
[2023-08-16] MEDS: ZIPRASIDONE MESYLATE 20 MG/ML VIAL IM ONE (14:10)
[2023-08-16 14:45] LABS: BASOPHILS # (AUTO) 0.1 K/uL (0.00-0.22); BASOPHILS % (AUTO) 2.9 % (0.0-2.0); EOSINOPHILS # (AUTO) 0.1 K/uL (0-0.4); EOSINOPHILS % (AUTO) 1.9 % (0.0-4.0); HEMATOCRIT 27.4 % (36-52); HEMOGLOBIN 8.8 g/dL (12.0-18.0); MEAN CORPUSCULAR HEMOGLOBIN 30 pg (27-31); MEAN CORPUSCULAR HGB CONC 32 g/dL (33-37); MEAN CORPUSCULAR VOLUME 92.2 fL (80-94); MONOCYTES # (AUTO) 0.8 K/uL (0.8-1.0); MONOCYTES % (AUTO) 15.4 % (1.7-9.3); NEUTROPHILS # (AUTO) 3.1 K/uL (1.8-7.7); NEUTROPHILS % (AUTO) 60.8 % (42.2-75.2); PLATELET COUNT (AUTO) 202 K/uL (140-450); RED BLOOD CELL COUNT(AUTO) 2.97 MIL/uL (4.20-6.10); RED CELL DISTRIBUTION WIDTH 18.2 % (11.6-13.7); WHITE BLOOD COUNT (AUTO) 5.1 K/uL (4.8-10.8)
[2023-08-16 14:59] LABS: ANION GAP 16.3 (8-16); CALCIUM 8.8 mg/dL (8.5-10.1); CARBON DIOXIDE 27.5 mmol/L (21-32); POTASSIUM 3.8 mmol/L (3.5-5.1)
[2023-08-16] MEDS ORDERED: ALBUTEROL 0.083% 2.5 MG/3 ML NEBU INH PRN (16:00)
[2023-08-16] MEDS ORDERED: ACETAMINOPHEN 325 MG TAB PO PRN (16:00)
[2023-08-16] MEDS ORDERED: ONDANSETRON 4 MG/2 ML VIAL IVP PRN (16:00)
[2023-08-16] MEDS ORDERED: ROC.25 PO (16:47)
[2023-08-16] MEDS ORDERED: CLON0.1T16 PO (16:47)
[2023-08-16] MEDS ORDERED: ACET-2619 PO (16:47)
[2023-08-16] MEDS ORDERED: CINA60TA1 PO (16:47)
[2023-08-16] MEDS ORDERED: [UNRECOGNIZED DRUG - CODE] PO (16:51)
[2023-08-16] MEDS ORDERED: DIPH25TA41 PO (16:51)
[2023-08-16] MEDS ORDERED: IMO2 PO (16:52)
[2023-08-16] MEDS ORDERED: DILT-135 PO (16:54)
[2023-08-16] MEDS ORDERED: METH200S IJ (16:54)
[2023-08-16] MEDS ORDERED: METO50TE63 PO (16:55)
[2023-08-16] MEDS ORDERED: MULT-1469 PO (16:57)
[2023-08-16 17:20] VITALS: PULSE 79; RESP 19; O2SAT 97
[2023-08-16] MEDS: hydrALAZINE 20 MG/ML VIAL IVP PRN (18:26)
[2023-08-16 20:00] VITALS: BP 152/88; PULSE 83; RESP 18; TEMP 98.8; O2SAT 97
[2023-08-17 07:10] LABS: ANION GAP 18.8 (8-16); CALCIUM 8.5 mg/dL (8.5-10.1); CARBON DIOXIDE 24.4 mmol/L (21-32); POTASSIUM 4.2 mmol/L (3.5-5.1)
[2023-08-17 07:12] LABS: CREATININE 11.7 mg/dL (0.6-1.3)
[2023-08-17 07:49] LABS: BASOPHILS # (AUTO) 0.1 K/uL (0.00-0.22); BASOPHILS % (AUTO) 2.6 % (0.0-2.0); EOSINOPHILS # (AUTO) 0.1 K/uL (0-0.4); EOSINOPHILS % (AUTO) 2.7 % (0.0-4.0); HEMATOCRIT 27.1 % (36-52); HEMOGLOBIN 8.9 g/dL (12.0-18.0); LYMPHOCYTES # (AUTO) 0.8 K/uL (2.0-11.5); LYMPHOCYTES % (AUTO) 15.9 % (20.5-51.1); MEAN CORPUSCULAR HEMOGLOBIN 30 pg (27-31); MEAN CORPUSCULAR HGB CONC 33 g/dL (33-37); MEAN CORPUSCULAR VOLUME 92.2 fL (80-94); MONOCYTES # (AUTO) 0.6 K/uL (0.8-1.0); MONOCYTES % (AUTO) 12.5 % (1.7-9.3); NEUTROPHILS # (AUTO) 3.3 K/uL (1.8-7.7); NEUTROPHILS % (AUTO) 66.3 % (42.2-75.2); PLATELET COUNT (AUTO) 230 K/uL (140-450); RED BLOOD CELL COUNT(AUTO) 2.94 MIL/uL (4.20-6.10); RED CELL DISTRIBUTION WIDTH 17.4 % (11.6-13.7)
[2023-08-17 08:00] VITALS: BP 152/88; PULSE 83; RESP 18; TEMP 98.8; O2SAT 97
[2023-08-17 12:00] VITALS: BP 162/83; PULSE 80; RESP 15; TEMP 97.6; O2SAT 94
[2023-08-17 14:45] VITALS: PULSE 83; RESP 18; O2SAT 97
[2023-08-17 16:00] VITALS: BP 156/84; PULSE 82; RESP 15; TEMP 97.7; O2SAT 96
[2023-08-17 20:00] VITALS: BP 185/102; PULSE 84; RESP 19; TEMP 98.2; O2SAT 93
[2023-08-17] MEDS: DILTIAZEM 120 MG CAPER PO SCH (20:35)
[2023-08-18 04:00] VITALS: BP 201/104; PULSE 78; RESP 21; TEMP 98.1; O2SAT 93
[2023-08-18 08:00] VITALS: PULSE 89; RESP 18; O2SAT 98
[2023-08-18] MEDS: METOPROLOL SUCCINATE 50 MG TABER PO SCH (09:17)
[2023-08-18] MEDS: CINACALCET 30 MG TAB PO SCH (09:27)
[2023-08-18] MEDS: VIT-B COMP/VIT-C/FOLIC ACID 1 TAB PO SCH (09:27)
[2023-08-18 12:00] VITALS: BP 188/87; PULSE 83; RESP 18; TEMP 98.4; O2SAT 91
[2023-08-18] MEDS: CHLORHEXADINE GLUC 2% CLOTH TP SCH (18:07)
[2023-08-18] MEDS: MUPIROCIN CA NASAL 2% 1GM TUBE NS SCH (18:09)
[2023-08-18 20:00] VITALS: PULSE 63; PULSE 89; RESP 18; TEMP 98.2; O2SAT 93; O2SAT 98
[2023-08-19 03:20] VITALS: BP 219/109; PULSE 78; RESP 18; O2SAT 94
[2023-08-19 03:25] VITALS: BP 211/103
[2023-08-19 03:30] VITALS: BP 223/115
[2023-08-19 04:40] VITALS: BP 201/101; PULSE 84; RESP 18
[2023-08-19] MEDS: hydrALAZINE 20 MG/ML VIAL IVP PRN (06:42)
[2023-08-19 06:59] LABS: BASOPHILS # (AUTO) 0.1 K/uL (0.00-0.22); BASOPHILS % (AUTO) 1.4 % (0.0-2.0); EOSINOPHILS # (AUTO) 0.2 K/uL (0-0.4); EOSINOPHILS % (AUTO) 2.3 % (0.0-4.0); HEMATOCRIT 26.3 % (36-52); HEMOGLOBIN 8.8 g/dL (12.0-18.0); LYMPHOCYTES # (AUTO) 0.8 K/uL (2.0-11.5); LYMPHOCYTES % (AUTO) 11.1 % (20.5-51.1); MEAN CORPUSCULAR HEMOGLOBIN 30 pg (27-31); MEAN CORPUSCULAR HGB CONC 34 g/dL (33-37); MEAN CORPUSCULAR VOLUME 90.6 fL (80-94); MONOCYTES # (AUTO) 0.8 K/uL (0.8-1.0); MONOCYTES % (AUTO) 11.3 % (1.7-9.3); NEUTROPHILS # (AUTO) 5.4 K/uL (1.8-7.7); NEUTROPHILS % (AUTO) 73.9 % (42.2-75.2); PLATELET COUNT (AUTO) 279 K/uL (140-450); RED BLOOD CELL COUNT(AUTO) 2.91 MIL/uL (4.20-6.10); RED CELL DISTRIBUTION WIDTH 17.3 % (11.6-13.7); WHITE BLOOD COUNT (AUTO) 7.3 K/uL (4.8-10.8)
[2023-08-19 07:20] LABS: ANION GAP 21.7 (8-16); CALCIUM 8.6 mg/dL (8.5-10.1); CARBON DIOXIDE 21.3 mmol/L (21-32)
[2023-08-19 07:47] LABS: CREATININE 14.6 mg/dL (0.6-1.3)
[2023-08-19 08:00] VITALS: BP 196/102; PULSE 82; PULSE 89; RESP 18; TEMP 98.6; O2SAT 93; O2SAT 98
[2023-08-19 20:00] VITALS: BP 207/111; PULSE 83; PULSE 84; RESP 18; RESP 24; TEMP 98.6; O2SAT 96; O2SAT 98
[2023-08-20 04:00] VITALS: BP 210/112; PULSE 80; RESP 20; TEMP 98.7; O2SAT 93
[2023-08-20 08:00] VITALS: PULSE 84; RESP 18; O2SAT 98
[2023-08-20 16:00] VITALS: BP 205/118; PULSE 89; RESP 18; TEMP 98.5; O2SAT 98
[2023-08-21] VITALS: PULSE 99; RESP 19; O2SAT 94
[2023-08-21 04:00] VITALS: BP 201/164; PULSE 115; RESP 19; TEMP 97.8; O2SAT 90
[2023-08-21 08:00] VITALS: PULSE 99; RESP 18; RESP 19; O2SAT 94
[2023-08-21 16:47] VITALS: BP 201/164; PULSE 115; RESP 19; TEMP 97.8
== END 2023-08-21 17:05 | disposition hospice, home (50) | DRG 698 ==
LOC: MED 13:52 → MMU 16:03 → MTU 16:38
PROVIDERS: ADMIT Student in an Organized Health Care Education/Training Program; ATTEND Student in an Organized Health Care Education/Training Program
DX: T82.41XA Breakdown (mechanical) of vascular dialysis catheter, initial encounter (principal); N18.6 End stage renal disease; I12.0 Hypertensive chronic kidney disease with stage 5 chronic kidney disease or end stage renal disease; Y83.8 Other surgical procedures as the cause of abnormal reaction of the patient, or of later complication, without mention of misadventure at the time of the procedure; F03.90 Unspecified dementia, unspecified severity, without behavioral disturbance, psychotic disturbance, mood disturbance, and anxiety; J44.9 Chronic obstructive pulmonary disease, unspecified; E11.22 Type 2 diabetes mellitus with diabetic chronic kidney disease; D63.1 Anemia in chronic kidney disease; Z99.2 Dependence on renal dialysis; Z79.899 Other long term (current) drug therapy
CPT/HCPCS: 36415; 71045; 80048; 83880; 84484; 85025; 87081; 93005; 96372; 99285; J0360; J3486